=== PATIENT | female | born 1960 | race Caucasian/White ===

== ENCOUNTER 2016-09-08 07:54 | Emergency (ER) | payer BC ==
[~2016-09-08] VITALS: Ht 165.1 cm; Wt 68.0 kg
[2016-09-08 08:11] VITALS: BP_SYST 141
[2016-09-08 09:15] VITALS: BP_SYST 110
== END 2016-09-08 09:15 | disposition home or self-care (01) ==
LOC: SED 07:54
DX: S93.401A Sprain of unspecified ligament of right ankle, initial encounter (principal); Z85.89 Personal history of malignant neoplasm of other organs and systems; W22.8XXA Striking against or struck by other objects, initial encounter; Y93.01 Activity, walking, marching and hiking; Y92.89 Other specified places as the place of occurrence of the external cause; Y99.8 Other external cause status
CPT/HCPCS: 99284